=== PATIENT | male | born 1980 | race African-American/Black ===

== ENCOUNTER 2023-05-31 19:55 | Inpatient (IN) | payer OTHER ==
[2023-05-31 20:25] VITALS: BMI 27.6
[2023-05-31] MEDS ORDERED: NICOTINE POLACRILEX 2 MG GUM BUC PRN (21:06)
[2023-05-31] MEDS ORDERED: POLYETHYLENE GLYCOL (HEALTHYLAX) 3350 17 GM PACKET PO PRN (21:06)
[2023-05-31] MEDS ORDERED: guaiFENesin 600 MG TABLET.ER (FP) PO PRN (21:06)
[2023-05-31] MEDS ORDERED: IBUPROFEN 400 MG TABLET (FP) PO PRN (21:06)
[2023-05-31] MEDS ORDERED: DICYCLOMINE HCL 10 MG CAPSULE PO PRN (21:06)
[2023-05-31] MEDS ORDERED: IBUPROFEN 600 MG TABLET (FP) PO PRN (21:06)
[2023-05-31] MEDS ORDERED: MAGNESIUM HYDROX 2400MG/30ML ORAL SUSPENSION 30 ML CUP PO PRN (21:06)
[2023-05-31] MEDS ORDERED: BENZONATATE 200 MG CAPSULE PO PRN (21:06)
[2023-05-31] MEDS ORDERED: MAG HYDROX/AL HYDROX/SIMETH 30 ML UNIT-DOSE CUP PO PRN (21:06)
[2023-05-31] MEDS ORDERED: METHOCARBAMOL 500 MG TABLET PO PRN (21:06)
[2023-05-31] MEDS ORDERED: NALOXONE HCL (KLOXXADO) 8 MG SPRAY NS PRN (21:06)
[2023-05-31] MEDS ORDERED: ACETAMINOPHEN 325 MG TABLET (FP) PO PRN (21:06)
[2023-05-31] MEDS ORDERED: ONDANSETRON *ODT* 4 MG TABLET SL PRN (21:06)
[2023-05-31] MEDS ORDERED: BISMUTH SUBSALICYLATE 524 MG/30 ML PO PRN (21:06)
[2023-05-31] MEDS ORDERED: hydrOXYzine PAMOATE 25 MG CAPSULE (FP) PO PRN (21:06)
[2023-05-31] MEDS ORDERED: LOPERAMIDE HCL 2 MG CAPSULE PO PRN (21:06)
[2023-05-31] MEDS ORDERED: BENZOCAINE/MENTHOL (CHLORASEPTIC ) LOZENGE MM PRN (21:06)
[2023-05-31] MEDS ORDERED: NALOXONE HCL 0.4 MG/ML VIAL IM PRN (21:06)
[2023-05-31] MEDS ORDERED: CEFPODOXIME PROXETIL 100 MG TABLET PO SCH (22:00)
[2023-05-31] MEDS ORDERED: MELATONIN 5 MG TABLETS ONE (22:12)
[2023-05-31] MEDS: THIAMINE HCL 100 MG TABLET (FP) PO SCH (22:15)
[2023-05-31] MEDS: MELATONIN 5 MG TABLETS PO SCH (22:15)
[2023-05-31] MEDS: CEFPODOXIME PROXETIL 200 MG TABLET [NF] PO SCH (23:19)
[2023-05-31] MEDS: HYDROCORTISONE 1% TOPICAL OINT 30 GM TUBE TP PRN (23:19)
[2023-06-01] MEDS ORDERED: cloNIDine HCL 0.1 MG TABLET PO PRN (05:59)
[2023-06-01] MEDS ORDERED: methaDONE HCL 10 MG TABLET (FOR DETOX USE ONLY) PO ONE (07:15)
[2023-06-01] MEDS ORDERED: PRENATAL VITAMINS W/ FOLIC ACID TABLET (FP) PO SCH (10:00)
[2023-06-01] MEDS ORDERED: NICOTINE 14 MG/24 HOURS TOPICAL PATCH TD SCH (10:00)
[2023-06-01] MEDS: CEFPODOXIME PROXETIL 200 MG TABLET [NF] PO SCH (10:17)
[2023-06-01] MEDS: DIVALPROEX SODIUM 500 MG TABLET E.C. PO SCH ×2 (10:17→22:11)
[2023-06-01] MEDS: HYDROCORTISONE 1% TOPICAL OINT 30 GM TUBE TP PRN (10:18)
[2023-06-01] MEDS: THIAMINE HCL 100 MG TABLET (FP) PO SCH (22:11)
[2023-06-01] MEDS: MELATONIN 5 MG TABLETS PO SCH (22:11)
[2023-06-01] MEDS: CEFPODOXIME PROXETIL 100 MG TABLET PO SCH (22:12)
[2023-06-02 05:59] VITALS: RESP 18; TEMP 97.7
[2023-06-02] MEDS: CEFPODOXIME PROXETIL 100 MG TABLET PO SCH (08:17)
[2023-06-02 09:24] VITALS: BP 128/77; PULSE 77
[2023-06-02] MEDS ORDERED: methaDONE HCL 10 MG TABLET (FOR DETOX USE ONLY) PO ONE (10:00)
[2023-06-02 10:26] LABS: POTASSIUM 4.3 mmol/L (3.5-5.1)
[2023-06-02 10:29] LABS: CALCIUM 8.8 mg/dL (8.5-10.1)
[2023-06-02 10:30] LABS: BLOOD UREA NITROGEN 8.6 mg/dL (7-18)
[2023-06-02 10:33] LABS: CREATININE 0.8 mg/dL (0.55-1.3)
[2023-06-02 10:34] LABS: TOT PROT 6.5 g/dl (6.4-8.2)
[2023-06-02 10:35] LABS: BILIRUBIN,TOTAL 0.2 mg/dL (0.2-1)
[2023-06-02 10:36] LABS: HEMATOCRIT 41.4 % (35.4-49); HEMOGLOBIN 13.4 GM/dL (11.7-16.9); MCH 27.5 pg (25.7-33.7); MCHC 32.4 g/dl (32.0-35.9); MEAN CELL VOLUME 84.9 fl (80-96); MEAN PLT VOLUME 8.3 fl (7.5-11.1); PLATELET COUNT 297 10^3/uL (134-434); RBC 4.87 M/mm3 (4.00-5.60); RDW 14.2 % (11.9-15.9); WHITE BLOOD COUNT 6.1 K/mm3 (4.0-10.0)
[2023-06-03] MEDS ORDERED: methaDONE HCL 10 MG TABLET (FOR DETOX USE ONLY) PO ONE (10:00)
[2023-06-05] MEDS ORDERED: methaDONE HCL 10 MG TABLET (FOR DETOX USE ONLY) PO ONE (10:00)
== END 2023-06-02 09:24 | disposition left against medical advice (07) | DRG 770 ==
LOC: YASAS 19:55 → Y6N 21:57
PROVIDERS: ADMIT Allergy & Immunology; ATTEND Surgery
PROC: HZ2ZZZZ Detoxification Services for Substance Abuse Treatment (ICD-10-PCS; principal; 2023-05-31)
DX: F11.23 Opioid dependence with withdrawal (principal); F14.20 Cocaine dependence, uncomplicated; F12.20 Cannabis dependence, uncomplicated; F17.210 Nicotine dependence, cigarettes, uncomplicated; F31.9 Bipolar disorder, unspecified; F19.282 Other psychoactive substance dependence with psychoactive substance-induced sleep disorder; L30.8 Other specified dermatitis; Z87.01 Personal history of pneumonia (recurrent); Z59.00 Homelessness unspecified; Z56.0 Unemployment, unspecified
CPT/HCPCS: 36415; 80053; 85027; 86780; 87635; 87811; 93005; 93010

== ENCOUNTER 2023-11-12 13:57 | Inpatient (IN) | payer OTHER ==
[2023-11-12 16:19] VITALS: BMI 25.9
[2023-11-12] MEDS ORDERED: BISMUTH SUBSALICYLATE 524 MG/30 ML PO PRN (17:12)
[2023-11-12] MEDS ORDERED: MAG HYDROX/AL HYDROX/SIMETH 30 ML UNIT-DOSE CUP PO PRN (17:12)
[2023-11-12] MEDS ORDERED: P-EPHED 60MG/TRIPROLIDI 2.5MG TABLET PO PRN (17:12)
[2023-11-12] MEDS ORDERED: BENZOCAINE/MENTHOL (CHLORASEPTIC ) LOZENGE MM PRN (17:12)
[2023-11-12] MEDS ORDERED: ACETAMINOPHEN 325 MG TABLET (FP) PO PRN (17:12)
[2023-11-12] MEDS ORDERED: DICYCLOMINE HCL 10 MG CAPSULE PO PRN (17:12)
[2023-11-12] MEDS ORDERED: BENZONATATE 200 MG CAPSULE PO PRN (17:12)
[2023-11-12] MEDS ORDERED: IBUPROFEN 400 MG TABLET (FP) PO PRN (17:12)
[2023-11-12] MEDS ORDERED: ONDANSETRON *ODT* 4 MG TABLET SL PRN (17:12)
[2023-11-12] MEDS ORDERED: IBUPROFEN 600 MG TABLET (FP) PO PRN (17:12)
[2023-11-12] MEDS ORDERED: NICOTINE POLACRILEX 2 MG GUM BUC PRN (17:12)
[2023-11-12] MEDS ORDERED: LOPERAMIDE HCL 2 MG CAPSULE PO PRN (17:12)
[2023-11-12] MEDS ORDERED: guaiFENesin 600 MG TABLET.ER (FP) PO PRN (17:12)
[2023-11-12] MEDS ORDERED: POLYETHYLENE GLYCOL (HEALTHYLAX) 3350 17 GM PACKET PO PRN (17:12)
[2023-11-12] MEDS ORDERED: MAGNESIUM HYDROX 2400MG/30ML ORAL SUSPENSION 30 ML CUP PO PRN (17:12)
[2023-11-12] MEDS: hydrOXYzine PAMOATE 25 MG CAPSULE (FP) PO PRN (22:34)
[2023-11-12] MEDS: THIAMINE HCL 100 MG TABLET (FP) PO SCH (22:34)
[2023-11-12] MEDS: MELATONIN 5 MG TABLETS PO SCH (22:34)
[2023-11-12] MEDS: METHOCARBAMOL 500 MG TABLET PO PRN (22:34)
[2023-11-13] MEDS ORDERED: chlordiazePOXIDE HCL 25 MG CAPSULE PO PRN (09:19)
[2023-11-13] MEDS: chlordiazePOXIDE HCL 25 MG CAPSULE PO SCH (10:43)
[2023-11-13] MEDS: PRENATAL VITAMINS W/ FOLIC ACID TABLET (FP) PO SCH (10:43)
[2023-11-13 14:43] LABS: HEMATOCRIT 40.7 % (35.4-49); HEMOGLOBIN 13.5 GM/dL (11.7-16.9); MCH 28.5 pg (25.7-33.7); MCHC 33.3 g/dl (32.0-35.9); MEAN CELL VOLUME 85.6 fl (80-96); MEAN PLT VOLUME 7.7 fl (7.5-11.1); PLATELET COUNT 325 10^3/uL (134-434); RBC 4.76 M/mm3 (4.00-5.60); WHITE BLOOD COUNT 5.1 K/mm3 (4.0-10.0)
[2023-11-13 15:00] LABS: POTASSIUM 4.3 mmol/L (3.5-5.1)
[2023-11-13 15:03] LABS: CALCIUM 8.9 mg/dL (8.5-10.1)
[2023-11-13 15:04] LABS: BLOOD UREA NITROGEN 9.1 mg/dL (7-18)
[2023-11-13 15:06] LABS: CREATININE 0.8 mg/dL (0.55-1.3)
[2023-11-13 15:08] LABS: BILIRUBIN,TOTAL 0.2 mg/dL (0.2-1); TOT PROT 6.2 g/dl (6.4-8.2)
[2023-11-13 17:33] VITALS: BP 147/89; PULSE 101; RESP 17; TEMP 97.8
[2023-11-15] MEDS ORDERED: chlordiazePOXIDE HCL 25 MG CAPSULE PO SCH (05:00)
[2023-11-16] MEDS ORDERED: chlordiazePOXIDE HCL 10 MG CAPSULE PO PRN
[2023-11-16] MEDS ORDERED: chlordiazePOXIDE HCL 10 MG CAPSULE PO SCH (05:00)
[2023-11-17] MEDS ORDERED: chlordiazePOXIDE HCL 10 MG CAPSULE PO SCH (05:00)
[2023-11-18] MEDS ORDERED: chlordiazePOXIDE HCL 10 MG CAPSULE PO ONE (05:00)
== END 2023-11-13 18:09 | disposition left against medical advice (07) | DRG 770 ==
LOC: YASAS 13:57 → Y6N 18:07
PROVIDERS: ADMIT Allergy & Immunology; ATTEND Surgery
PROC: HZ2ZZZZ Detoxification Services for Substance Abuse Treatment (ICD-10-PCS; principal; 2023-11-12)
DX: F10.230 Alcohol dependence with withdrawal, uncomplicated (principal); F14.20 Cocaine dependence, uncomplicated; F17.210 Nicotine dependence, cigarettes, uncomplicated; F31.9 Bipolar disorder, unspecified; F10.282 Alcohol dependence with alcohol-induced sleep disorder; F10.24 Alcohol dependence with alcohol-induced mood disorder; L30.8 Other specified dermatitis; Z56.0 Unemployment, unspecified; Z59.00 Homelessness unspecified
CPT/HCPCS: 0241U-QW; 36415; 80053; 80305; 82140; 85027; 86780; 93005; 93010